=== PATIENT | female | born 1965 | race Caucasian/White ===

== ENCOUNTER → 2017-11-24 | Outpatient (CLI) | payer OTHER ==
[~2017-11-24] MED LIST: LEVO125T57
[2017-11-24 16:06] LABS: ALBUMIN 4.1 gm/dl (3.4-5.0); ALT/SGPT 21 U/L (12-78); BLOOD UREA NITROGEN 11 mg/dl (7-18); CALCIUM 9.2 mg/dl (8.5-10.1); CARBON DIOXIDE 27 mmol/L (21-32); CHOLESTEROL 323 mg/dl (0-200); CREATININE 0.72 mg/dl (0.60-1.20); GLUCOSE 89 mg/dl (70-99); POTASSIUM 3.8 mmol/L (3.5-5.1); SODIUM 136 mmol/L (136-145)
[2017-11-24 16:16] LABS: ALKALINE PHOSPHATASE 62 U/L (45-117); AST/SGOT 15 U/L (15-37); LDL CHOLESTEROL CALCULATED 235 mg/dl; TOTAL PROTEIN 7.9 gm/dl (6.4-8.2)
== END | disposition home or self-care (01) ==
LOC: C.LAB1850 10:49
PROVIDERS: ATTEND Nurse Practitioner Family
DX: I10 Essential (primary) hypertension (principal); E03.9 Hypothyroidism, unspecified; Z13.220 Encounter for screening for lipoid disorders; Z13.1 Encounter for screening for diabetes mellitus

== ENCOUNTER → 2017-12-22 | Outpatient (CLI) | payer OTHER | END | disposition home or self-care (01) | LOC: C.MAMM 09:51 | PROVIDERS: ATTEND Nurse Practitioner Family | DX: Z13.820 Encounter for screening for osteoporosis (principal); Z85.3 Personal history of malignant neoplasm of breast; M85.88 Other specified disorders of bone density and structure, other site; M85.852 Other specified disorders of bone density and structure, left thigh; M85.851 Other specified disorders of bone density and structure, right thigh ==

== ENCOUNTER → 2018-01-08 | Outpatient (CLI) | payer OTHER ==
--- NOTE | 2018-01-11 08:07 | MAMMOGRAPHY REPORT ---
BILATERAL DIGITAL SCREENING MAMMOGRAM TOMOSYNTHESIS WITH CAD: 01/08/2018 CLINICAL HISTORY: Asymptomatic. Personal history of breast cancer. TECHNIQUE: Breast tomosynthesis in addition to standard 2D mammography was performed. Current study was also evaluated with a Computer Aided Detection (CAD) system. COMPARISON: Comparison is made to exam dated: 03/08/2008, 03/02/2006. BREAST COMPOSITION: There are scattered areas of fibroglandular density in both breasts. FINDINGS: There have been involutional changes comparing to the prior available mammograms from 2005 and 2007. There is a small 3.5 mm rounded nodular asymmetry in the lateral posterior left breast, on ly seen on the cc view (tomosynthesis slice 15/60), but thought to be located in the inferior aspect of the breast based on the tomosynthesis localizer bar. Comparison to more recent prior mammograms i s recommended to assess stability. If more recent prior mammograms are unable to be obtained in a ti frank manner, additional spot compression tomosynthesis views and possible ultrasound are recommended. Otherwise there is expected architectural distortion and surgical clips in the 12:00 posterior left b reast, at the site of prior lumpectomy. Surgical clips also project over the left axilla. No other suspicious mass, architectural distortion or cluster of microcalcifications is seen. IMPRESSION: ACR BI-RADS CATEGORY 0: INCOMPLETE EVALUATION: NEED ADDITIONAL IMAGING EVALUATION The small, 3.5 mm nodular asymmetry in the lateral left breast needs comparison to more recent prior mammograms to assess stability. If they are unable to be obtained in a timely manner, additional spo t compression tomosynthesis views and possible ultrasound are recommended. The patient will be called to schedule an appointment. Approximately 10% of breast cancers are not detected with mammography. A negative mammographic report should not delay biopsy if a clinically suggestive mass is present. Shelley Galvez M.D. ay/:01/08/2018 15:37:06 Stacker Tender: Rebecca Alfonso, [facility] letter sent: Need Priors 0 BI-RADS Code: ACR BI-RADS Category 0: Incomplete Evaluation: Need Additional Imaging Evaluation
== END | disposition home or self-care (01) ==
LOC: C.MAMM 13:32
PROVIDERS: ATTEND Nurse Practitioner Family
DX: Z12.31 Encounter for screening mammogram for malignant neoplasm of breast (principal); N64.89 Other specified disorders of breast

== ENCOUNTER → 2018-01-20 | Outpatient (CLI) | payer OTHER ==
--- NOTE | 2018-01-21 08:04 | MAMMOGRAPHY REPORT ---
UNILATERAL LEFT DIGITAL DIAGNOSTIC MAMMOGRAM TOMOSYNTHESIS AND TARGETED LEFT ULTRASOUND: 01/20/2018 CLINICAL HISTORY: 52-year-old woman with a personal history of left breast cancer status post breast conservation treatment callback from screening mammography for a small 3.5 mm nodular asymmetry in th e lateral left breast on the CC view. TECHNIQUE: Spot compression tomosynthesis left CC and MLO views were obtained. COMPARISON: Comparison is made to exams dated: 01/08/2018 mammogram - [facility], 1 12/31/2015 mammogram, 10/26/2015 mammogram, 10/16/2014 mammogram, 10/11/2013 mammogram, and 03/20/2011 ma mmogram - [facility]. BREAST COMPOSITION: There are scattered areas of fibroglandular density in the left breast. FINDINGS: The spot compression left CC tomosynthesis view demonstrates effacement of the small, 3.5 m m nodular asymmetry in the lateral posterior breast. No corresponding abnormality is identified on t he spot compression MLO tomosynthesis images. There are stable biopsy clips and architectural distor tion in the 12:00 posterior left breast at the site of prior lumpectomy. Targeted ultrasound was performed throughout the lateral left breast including the upper outer and lo wer outer quadrants. Sonographically normal tissue is seen without a discrete solid or cystic mass. IMPRESSION: ACR-BI-RADS CATEGORY 3: PROBABLY BENIGN, TARGETED ULTRASOUND ACR-BI-RADS CATEGORY 3: PRO BABLY BENIGN There is effacement of the 3.5 mm nodular asymmetry in the lateral, posterior left breast with supple mental spot compression tomosynthesis images, and no suspicious sonographic correlate identified. Gi renee the discrete focal nature on the recent screening mammogram, and personal history of left breast cancer, a short interval follow-up left diagnostic tomosynthesis mammogram and possible ultrasound is recommended to ensure stability in 6 months. These results and recommendations were discussed with the patient and her at the time of the exam. Approximately 10% of breast cancers are not detected with mammography. A negative mammographic report should not delay biopsy if a clinically suggestive mass is present. Shelley Galvez M.D. ay/:01/20/2018 15:23:05 Mix Chemist: Rebecca SPENCER(Shanique)(Agueda), [facility] letter sent: Follow Up Recommended 3 BI-RADS Code: ACR-BI-RADS Category 3: Probably Benign Ultrasound BI-RADS: ACR-BI-RADS Category 3: Pr obably Benign
== END | disposition home or self-care (01) ==
LOC: C.MAMM 14:06
PROVIDERS: ATTEND Nurse Practitioner Family
DX: N64.89 Other specified disorders of breast (principal); Z85.3 Personal history of malignant neoplasm of breast

== ENCOUNTER → 2018-01-26 | Outpatient (CLI) | payer OTHER | END | disposition home or self-care (01) | LOC: C.LAB1850 09:46 | PROVIDERS: ATTEND Nurse Practitioner Family | DX: M85.80 Other specified disorders of bone density and structure, unspecified site (principal); E03.9 Hypothyroidism, unspecified ==